=== PATIENT | male | born 1945 ===

== ENCOUNTER 2023-08-13 06:00 | Outpatient (RCR) | payer MEDICARE, SELFPAY | END 2023-09-04 23:59 | disposition home or self-care (01) | LOC: GPT 06:00 | PROVIDERS: Visit Provider Family Medicine | DX: M47.812 Spondylosis without myelopathy or radiculopathy, cervical region (principal) | CPT/HCPCS: 97110; 97140; 97161; 97164 ==

== ENCOUNTER 2023-09-05 06:00 | Outpatient (RCR) | payer MEDICARE, SELFPAY | END 2023-09-17 23:59 | disposition home or self-care (01) | LOC: GPT 06:00 | PROVIDERS: Visit Provider Family Medicine | DX: M54.2 Cervicalgia (principal) | CPT/HCPCS: 97110; 97140 ==